=== PATIENT | female | born 1940 | race Caucasian/White ===

== ENCOUNTER 2017-03-28 12:09 | Emergency (ER) | payer MEDICARE ==
[~2017-03-28] VITALS: Ht 157.5 cm; Wt 118.1 kg
[2017-03-28] MEDS ORDERED: LIDOCAINE 1%, 20ML ONE (12:33)
[2017-03-28] MEDS ORDERED: DIPH,PERTUSS(ACELL),TET VAC/PF 0.5 ML IM-VACC ONE ×2 (12:57→13:00)
[2017-03-28] MEDS ORDERED: LIDOCAINE 1%, 20ML SQ ONE (13:00)
[2017-03-28 14:50] VITALS: BP 145/76
== END 2017-03-28 15:36 | disposition home or self-care (01) ==
LOC: ED 15:14
DX: S81.812A Laceration without foreign body, left lower leg, initial encounter (principal); R60.0 Localized edema; W22.8XXA Striking against or struck by other objects, initial encounter; Y93.89 Activity, other specified; Y92.89 Other specified places as the place of occurrence of the external cause; Y99.8 Other external cause status; J44.9 Chronic obstructive pulmonary disease, unspecified; I48.91 Unspecified atrial fibrillation; I50.9 Heart failure, unspecified
CPT/HCPCS: 12002; 90471; 90715; 93005; 93971; 99284; J3490

== ENCOUNTER → 2017-03-28 | Outpatient (CLI) | payer MEDICARE | END | disposition home or self-care (01) | LOC: RAD 15:32 | PROVIDERS: ATTEND Neurological Surgery | DX: M47.896 Other spondylosis, lumbar region (principal); M41.86 Other forms of scoliosis, lumbar region; I51.7 Cardiomegaly; Z95.0 Presence of cardiac pacemaker | CPT/HCPCS: 72082 ==